=== PATIENT | male | born 1990 | race Caucasian/White ===

== ENCOUNTER 2022-01-23 11:03 | Emergency (ER) | payer SELFPAY ==
[~2022-01-23] VITALS: Ht 165.1 cm; Wt 64.0 kg
[2022-01-23] MEDS ORDERED: MAGNESIUM/ALUMINUM HYDROXIDE/SIMETHICONE 30ML UDC PO STA (11:22)
[2022-01-23] MEDS ORDERED: VISCOUS LIDOCAINE 2% 15 ML UDC PO STA (11:22)
[2022-01-23] MEDS ORDERED: FAMOTIDINE 20MG TABLET PO ONE (11:30)
[2022-01-23] MEDS ORDERED: ONDANSETRON 4MG ODT PO ONE (11:30)
[2022-01-23 12:00] VITALS: BP 121/79
== END 2022-01-23 17:25 | disposition home or self-care (01) ==
LOC: ER 11:03 → EDSEX 11:03 → ER 17:25
DX: F10.129 Alcohol abuse with intoxication, unspecified (principal); Y90.9 Presence of alcohol in blood, level not specified
CPT/HCPCS: 82962; 99284; Q0162; Z7610